=== PATIENT | female | born 1950 | race Caucasian/White ===

== ENCOUNTER → 2017-09-08 | Outpatient (CLI) | payer OTHER | END | disposition home or self-care (01) | DX: R26.2 Difficulty in walking, not elsewhere classified (principal); M25.562 Pain in left knee; M25.662 Stiffness of left knee, not elsewhere classified; M17.12 Unilateral primary osteoarthritis, left knee; Z74.1 Need for assistance with personal care | CPT/HCPCS: 97161 GP; 97165 GO; 97530 GP; 97537 GO; G8978 GP; G8979 GP; G8980 GP; G8987 GO; G8988 GO; G8989 GO ==

== ENCOUNTER 2017-10-11 22:02 | Inpatient (IN) | payer OTHER ==
[~2017-10-11] VITALS: Ht 162.6 cm; Wt 73.0 kg
[~2017-10-11 22:02] MED LIST: CALTRATE PLUS1 EACH PO; CLARITIN10 M3 PO; EVISTA60 MG PO; GLUCOPHAGE500 MG PO; LIPITOR40 MG PO; LO-DOSE ASPIRIN81 M2 PO; MULTI VITAMIN1 EACH PO; OMEPRAZOLE40 M1 PO; VOLTAREN50 MG PO
[2017-10-12 05:46] VITALS: BP 132/76
[2017-10-12 09:59] LABS: HEMATOCRIT 36.9 % (36.0-46.0); MCHC 33.3 G/DL (30.0-36.0); MEAN PLAT.VOLUME 11.1 uM^3 (9.5-12.4); PLATELET COUNT 206 K/uL (156-360); RBC DIS.WIDTH-SD 42.7 % (39-53); WHITE BLOOD COUNT 9.6 K/uL (4.1-10.2)
[2017-10-12 10:52] VITALS: BP 126/66
[2017-10-12 12:01] LABS: POINT-OF-CARE METER ID UU13113712
[2017-10-12 15:47] VITALS: BP 156/81
[2017-10-12 16:45] LABS: POINT-OF-CARE METER ID UU13113712
[2017-10-12 19:55] VITALS: BP 165/87
[2017-10-12 22:09] LABS: POINT-OF-CARE METER ID UU13113712
[2017-10-12 23:55] VITALS: BP 166/85
[2017-10-13 04:00] VITALS: BP 154/58
[2017-10-13 06:51] LABS: HEMATOCRIT 34.4 % (36.0-46.0); MCV 87.3 FL (83-99)
[2017-10-13 07:02] LABS: ANION GAP 8 MEQ/L (2-14); CHLORIDE 98 MEQ/L (99-109); POTASSIUM 3.7 MEQ/L (3.7-5.4); SAMPLE HEMOLYSIS CHECK 0; SAMPLE ICTERIC CHECK 0; SAMPLE LIPEMIA CHECK 0; SODIUM 132 MEQ/L (136-147)
[2017-10-13 07:07] LABS: GFR ESTIMATE (CALCULATED) > 59 mL/min/; GLUCOSE 158 mg/dL (70-99); UREA NITROGEN (BUN) 14 mg/dL (9-23)
[2017-10-13 07:48] LABS: POINT-OF-CARE METER ID UU13113712
[2017-10-13 08:11] VITALS: BP 138/79
[2017-10-13 11:41] LABS: POINT-OF-CARE METER ID UU13113712
[2017-10-13 11:58] VITALS: BP 132/63
[2017-10-13] MEDS ORDERED: ENDOCET 5-3251 EACH PO (13:39)
[2017-10-13] MEDS ORDERED: LOVENOX40 MG/0.4 SC (13:39)
[2017-10-13 15:49] VITALS: BP 115/58
[2017-10-13 16:58] LABS: POINT-OF-CARE METER ID UU13113712
[2017-10-13 20:09] VITALS: BP 123/60
[2017-10-13 21:49] LABS: POINT-OF-CARE METER ID UU13113712
[2017-10-14 00:17] VITALS: BP 131/67
[2017-10-14 04:15] VITALS: BP 121/74
[2017-10-14 05:27] LABS: HEMATOCRIT 31.1 % (36.0-46.0); MCV 87.6 FL (83-99)
[2017-10-14 06:02] LABS: ANION GAP 8 MEQ/L (2-14); CHLORIDE 101 MEQ/L (99-109); GFR ESTIMATE (CALCULATED) > 59 mL/min/; POTASSIUM 4.2 MEQ/L (3.7-5.4); SAMPLE HEMOLYSIS CHECK 0; SAMPLE ICTERIC CHECK 0; SAMPLE LIPEMIA CHECK 0; SODIUM 135 MEQ/L (136-147); UREA NITROGEN (BUN) 13 mg/dL (9-23)
[2017-10-14 06:03] LABS: GLUCOSE 113 mg/dL (70-99)
[2017-10-14 07:27] LABS: POINT-OF-CARE METER ID UU13113712
[2017-10-14 08:00] VITALS: BP 123/56
[2017-10-14 11:27] LABS: POINT-OF-CARE METER ID UU13113712
[2017-10-14 11:40] VITALS: BP 116/37
== END 2017-10-14 13:58 | DRG 470 ==
LOC: ENRESERV 22:02 → 2SOUTH 10-12 05:19 → 3WEST 10-12 05:19 → 2SOUTH 10-12 06:23 → 3WEST 10-12 10:27 → 2SOUTH 10-12 10:35 → 3WEST 10-14 13:58
PROVIDERS: Orthopaedic Surgery; Physician Assistant
PROC: 0SRD0J9 Replacement of Left Knee Joint with Synthetic Substitute, Cemented, Open Approach (ICD-10-PCS; principal; 2017-10-12)
DX: M17.12 Unilateral primary osteoarthritis, left knee (principal); E87.1 Hypo-osmolality and hyponatremia; J45.909 Unspecified asthma, uncomplicated; K21.9 Gastro-esophageal reflux disease without esophagitis; E78.00 Pure hypercholesterolemia, unspecified; R73.03 Prediabetes; M85.80 Other specified disorders of bone density and structure, unspecified site; Z85.3 Personal history of malignant neoplasm of breast; Z86.010 Personal history of colon polyps; Z79.84 Long term (current) use of oral hypoglycemic drugs; Z79.82 Long term (current) use of aspirin; Z80.3 Family history of malignant neoplasm of breast; Z82.49 Family history of ischemic heart disease and other diseases of the circulatory system; Z83.3 Family history of diabetes mellitus
CPT/HCPCS: 36415; 73560; 80048; 82948; 85014; 85018; 85027; 86850; 86900; 86901; 93971; C1713; J0690; J1170; J1650; J1815; J2250; J2405; J3010; J7030; J7050; J7120